=== PATIENT | male | born 1960 | race Caucasian/White ===

== ENCOUNTER 2017-09-01 19:30 | Inpatient (IN) | payer OTHER ==
[2017-09-01] MEDS: SIMVASTATIN 20 MG TABLET PO (21:25)
[2017-09-01] MEDS ORDERED: DEXTROSE 50% 25 GM / 50ML DISP.SYRIN. IV (23:30)
[2017-09-01] MEDS ORDERED: ZOLPIDEM 5 MG TABLET. PO (23:30)
[2017-09-01] MEDS ORDERED: DOCUSATE SODIUM 100 MG CAPSULE. PO (23:30)
[2017-09-01] MEDS: ENOXAPARIN 40 MG/0.4 ML SYRINGE. SQ (23:42)
[2017-09-02] MEDS: LABETALOL 20 MG/4 ML DISP.SYRIN. IVP (03:41)
[2017-09-02 05:14] LABS: ADD MAN DIFF? NO
[2017-09-02] MEDS: ATENOLOL 25 MG TABLET. PO (05:15)
[2017-09-02 05:19] LABS: BASO % 1 % (0-3); EOS # 0.2 x10^3/uL (0.0-0.7); EOS % 4 % (0-3); HEMOGLOBIN 16.6 g/dL (13.0-17.5); LYMPH # 2.3 x10^3/uL (1.0-4.8); LYMPH % 38 % (24-48); MEAN CORPUSCULAR HEMOGLOBIN 27 pg (25-35); MEAN CORPUSCULAR HGB CONC 33 g/dL (31-37); MEAN CORPUSCULAR VOLUME 82 fL (79-100); MONO # 0.7 x10^3/uL (0.0-1.1); MONO % 11 % (0-9); NEUT # 2.8 x10^3uL (1.8-7.7); NEUT % 46 % (31-73); RED BLOOD COUNT 6.12 x10^6/uL (4.30-5.70); RED CELL DISTRIBUTION WIDTH 14.3 % (11.5-14.5)
[2017-09-02 06:00] LABS: ALBUMIN 3.8 g/dL (3.4-5.0); ALBUMIN/GLOBULIN RATIO 1.2 (1.0-1.7); ALK PHOS 80 U/L (46-116); ALT (SGPT) 36 U/L (16-63); ANION GAP 13 (6-14); AST (SGOT) 26 U/L (15-37); BLOOD UREA NITROGEN 17 mg/dL (8-26); BUN/CREATININE RATIO 19 (6-20); CALCIUM 8.6 mg/dL (8.5-10.1); CARBON DIOXIDE 25 mmol/L (21-32); CHLORIDE 103 mmol/L (98-107); CREATININE 0.9 mg/dL (0.7-1.3); GFR 87.9; GLUCOSE 160 mg/dL (70-99); POTASSIUM 3.6 mmol/L (3.5-5.1); SODIUM 141 mmol/L (136-145); TOTAL BILIRUBIN 0.6 mg/dL (0.2-1.0); TOTAL PROTEIN 6.9 g/dL (6.4-8.2)
[2017-09-02 06:08] LABS: PLATELET COUNT 146 x10^3/uL (140-400)
[2017-09-02] MEDS: dilTIAZem 125 MG in IV NORMAL SALINE 100ML 100 ML IV (06:17)
[2017-09-02] MEDS: dilTIAZem IV PUSH 25 MG/5 ML VIAL IVP (06:18)
[2017-09-02 07:30] LABS: POC GLUCOSE 139 mg/dL (70-99)
[2017-09-02] MEDS: INSULIN ASPART 300 UNITS/3 ML INSULN.PEN SQ ×3 (08:00→17:00)
[2017-09-02 08:17] LABS: POC GLUCOSE 136 mg/dL (70-99)
[2017-09-02] MEDS ORDERED: PNEUMOCOCCAL VAX SCREEN BY RX. MC (09:00)
[2017-09-02] MEDS ORDERED: ATENOLOL 25 MG TABLET. PO (09:00)
[2017-09-02] MEDS: DIGOXIN IV 500 MCG/2 ML AMPUL. IV (09:13)
[2017-09-02] MEDS ORDERED: ACETAMINOPHEN 500 MG TABLET PO (10:45)
[2017-09-02] MEDS ORDERED: ONDANSETRON PF 4 MG/2 ML VIAL. IV (10:45)
[2017-09-02 12:13] LABS: POC GLUCOSE 130 mg/dL (70-99)
[2017-09-02] MEDS ORDERED: IOHEXOL 300 MG/ML 100ML VIAL. (13:05)
[2017-09-02] MEDS ORDERED: LIDOCAINE 2% 20 ML VIAL. (13:05)
[2017-09-02] MEDS ORDERED: VERAPAMIL 5 MG/2 ML VIAL. (14:42)
[2017-09-02] MEDS ORDERED: MIDAZOLAM HCL/PF 2 MG/2 ML VIAL. (14:42)
[2017-09-02] MEDS ORDERED: NITROGLYCERIN 200 MCG/2 ML SYRINGE FOR CATH/VASC LAB. (14:42)
[2017-09-02] MEDS ORDERED: fentaNYL PF VIAL 100 MCG/2 ML VIAL (14:42)
[2017-09-02] MEDS ORDERED: HEPARIN for IV BOLUS 10,000 UNIT/10 ML VIAL. (14:42)
[2017-09-02] MEDS: HEPARIN for IV BOLUS 10,000 UNIT/10 ML VIAL. IART (15:15)
[2017-09-02] MEDS: LIDOCAINE 2% 20 ML VIAL. IJ (15:15)
[2017-09-02] MEDS: NITROGLYCERIN 200 MCG/2 ML SYRINGE FOR CATH/VASC LAB. IART (15:15)
[2017-09-02] MEDS: MIDAZOLAM HCL/PF 2 MG/2 ML VIAL. IV (15:15)
[2017-09-02] MEDS: VERAPAMIL 5 MG/2 ML VIAL. IART (15:15)
[2017-09-02] MEDS: IOHEXOL 300 MG/ML 50 ML VIAL. IART (15:15)
[2017-09-02] MEDS: fentaNYL PF VIAL 100 MCG/2 ML VIAL IV (15:15)
[2017-09-02] MEDS: ASPIRIN ENTERIC COATED 325 MG TABLET.DR. PO (15:57)
[2017-09-02 16:54] LABS: POC GLUCOSE 157 mg/dL (70-99)
[2017-09-02] MEDS: ATORVASTATIN CALCIUM 10 MG TABLET. PO (20:47)
[2017-09-02] MEDS: ENOXAPARIN 40 MG/0.4 ML SYRINGE. SQ (20:47)
[2017-09-02 21:01] LABS: POC GLUCOSE 168 mg/dL (70-99)
[2017-09-03] MEDS: INSULIN ASPART 300 UNITS/3 ML INSULN.PEN SQ ×2 (08:00→12:00)
[2017-09-03 08:07] LABS: POC GLUCOSE 147 mg/dL (70-99)
[2017-09-03] MEDS: DOCUSATE SODIUM 100 MG CAPSULE. PO (09:00)
[2017-09-03] MEDS: ASPIRIN ENTERIC COATED 325 MG TABLET.DR. PO (09:12)
[2017-09-03] MEDS: ATENOLOL 25 MG TABLET. PO (09:12)
[2017-09-03 11:56] LABS: POC GLUCOSE 208 mg/dL (70-99)
== END 2017-09-03 15:30 | disposition home or self-care (01) | DRG 287 ==
LOC: 2 SOUTH 19:30
PROVIDERS: Internal Medicine
PROC: 4A023N7 Measurement of Cardiac Sampling and Pressure, Left Heart, Percutaneous Approach (ICD-10-PCS; principal; 2017-09-02)
PROC: B2111ZZ Fluoroscopy of Multiple Coronary Arteries using Low Osmolar Contrast (ICD-10-PCS; 2017-09-02)
PROC: B2151ZZ Fluoroscopy of Left Heart using Low Osmolar Contrast (ICD-10-PCS; 2017-09-02)
DX: R00.0 Tachycardia, unspecified (principal); I48.92 Unspecified atrial flutter; R07.89 Other chest pain; E66.9 Obesity, unspecified; E78.5 Hyperlipidemia, unspecified; I10 Essential (primary) hypertension; I49.3 Ventricular premature depolarization; Z79.84 Long term (current) use of oral hypoglycemic drugs; Z79.899 Other long term (current) drug therapy; Z82.49 Family history of ischemic heart disease and other diseases of the circulatory system; Z88.8 Allergy status to other drugs, medicaments and biological substances; Z88.1 Allergy status to other antibiotic agents
CPT/HCPCS: 36415; 80053; 82962; 85025; 93005; 93458; 99152; 99153; C1769; C1892; J1160; J1644; J1650; J1815; J2250; J3010; J3490; Q9967

== ENCOUNTER → 2021-06-14 | Outpatient (CLI) | payer BC ==
[2017-09-03 15:14] VITALS: BP 114/73
[~2021-06-14] MED LIST: ASPI325T11 PO; ATEN25TA PO; ATOR10TA PO; IBUP-1060 PO; METF500T16 PO; SIMV20TA18 PO
--- NOTE | 2021-06-14 11:22 | CARD ---
MR#: [id number] Date of Study: 06/14/2021 Ordering Physician: ALEX CARTAGENA, Referring Physician: ALEX CARTAGENA, Tech: Sera Bradley [facility] APPROVED REPORT EXAM: Two-dimensional and M-mode echocardiogram with Doppler and color Doppler. Other Information Quality : Excellent INDICATION Hypertension/HCVD RISK FACTORS Hypertension Obesity 2D DIMENSIONS RVDd3.6 (2.9-3.5cm)Left Atrium(2D)4.3 (1.6-4.0cm) IVSd1.2 (0.7-1.1cm)Aortic Root(2D)4.0 (2.0-3.7cm) LVDd4.9 (3.9-5.9cm)LVOT Diameter2.2 (1.8-2.4cm) PWd1.0 (0.7-1.1cm)LVDs3.3 (2.5-4.0cm) FS (%) 33.0 %SV68.2 ml Aortic Valve AoV Peak Paul.184.2cm/sAoV VTI41.8cm AO Peak GR.13.6mmHgLVOT Peak Paul.158.4cm/s AO Mean GR.7mmHgAVA (VMAX)3.22cm2 Mitral Valve MV E Gbunaiwf30.8cm/sMV DECEL [id number] MV A Jetwmdcs267.5cm/sE/A Ratio0.8 Tricuspid Valve TR P. Pfpguhzt706rs/sTR Peak Gr.22mmHg LEFT VENTRICLE The left ventricle is normal size. There is borderline concentric left ventricular hypertrophy. The l eft ventricular systolic function is normal and the ejection fraction is within normal range. LV eje ction fraction of 50-55%. There is normal LV segmental wall motion. Transmitral Doppler flow pattern is Grade I-abnormal relaxation pattern. RIGHT VENTRICLE The right ventricle is normal size. There is normal right ventricular wall thickness. The right ventr icular systolic function is normal. ATRIA The left atrium size is normal. The right atrium size is normal. The interatrial septum is intact wit h no evidence for an atrial septal defect or patent foramen ovale as noted on 2-D or Doppler imaging. AORTIC VALVE The aortic valve is normal in structure and function. Doppler and Color Flow revealed no significant aortic regurgitation. There is no significant aortic valvular stenosis. MITRAL VALVE The mitral valve is normal in structure and function. There is no evidence of mitral valve prolapse. There is no mitral valve stenosis. Doppler and Color-flow revealed trace mitral regurgitation. TRICUSPID VALVE The tricuspid valve is normal in structure and function. Doppler and Color Flow revealed trace tricus pid regurgitation. Estimated PAP 25 mmHg. There is no tricuspid valve stenosis. PULMONIC VALVE The pulmonary valve is normal in structure and function. Doppler and Color Flow revealed no pulmonic valvular regurgitation. GREAT VESSELS The aortic root is mildly enlarged. The ascending aorta is mildly dilated. The IVC is normal in size and collapses >50% with inspiration. PERICARDIAL EFFUSION There is no evidence of significant pericardial effusion. Critical Notification Critical Value: No <Conclusion> The left ventricle is normal size. The left ventricular systolic function is normal and the ejection fraction is within normal range. LV ejection fraction of 50-55%. There is borderline concentric left ventricular hypertrophy. Doppler and Color Flow revealed no significant aortic regurgitation. There is no significant aortic valvular stenosis. Doppler and Color-flow revealed trace mitral regurgitation. Doppler and Color Flow revealed trace tricuspid regurgitation. Estimated PAP 25 mmHg. The aortic root is mildly enlarged. Signed by : Chauncey Patton MD Electronically Approved : 06/14/2021 11:22:08
== END ==
LOC: ECHO 07:33
PROVIDERS: ATTEND Internal Medicine Cardiovascular Disease
DX: I51.7 Cardiomegaly (principal); I49.3 Ventricular premature depolarization
CPT/HCPCS: 93306